=== PATIENT | male | born 1980 | race Caucasian/White ===

== ENCOUNTER 2017-05-03 15:37 | Emergency (ER) | payer MEDICAID ==
[2017-05-03] MEDS ORDERED: ONDANSETRON 4 MG/2 ML VIAL IVP STA (15:58)
[2017-05-03] MEDS ORDERED: KETOROLAC 60 MG/2 ML VIAL IVP STA (15:58)
[2017-05-03] MEDS ORDERED: SODIUM CHLORIDE 0.9% 1,000 ML IV ONE ×2 (15:58→17:24)
[2017-05-03] MEDS ORDERED: MORPHINE 10 MG/ML VIAL IVP STA ×3 (15:59→21:17)
--- NOTE | 2017-05-03 16:02 | ED Physician Documentation ---
PD HPI ABD PAIN - Stated complaint Stated Complaint: VOMMITING - Chief complaint Chief Complaint: Back Pain - History obtained from History obtained from: Patient - History of Present Illness Timing - onset: Other Timing - details: Other (He hit his back on the bathtub last night, but was not really hurt at the time. He was drinking heavily last night. This morning woke up and he was vomiting, 30 was just hung over but then in the midst of vomiting he developed severe left-sided nonradiating flank pain that is the most severe pain is ever had. There is no associated problem with bowel movements. No fevers. There is no blood in the vomit.) Review of Systems Ten Systems: 10 systems reviewed and negative Constitutional: denies: Fever, Chills Nose: denies: Rhinorrhea / runny nose, Congestion Cardiac: denies: Chest pain / pressure, Palpitations Respiratory: denies: Dyspnea, Cough PD PAST MEDICAL HISTORY - Present Medications Home Medications: Ambulatory Orders Medication Instructions Recorded Confirmed No Known Home Medications [No 05/03/17 05/03/17 Known Home Medications] - Allergies Allergies/Adverse Reactions: Allergies Allergy/AdvReac Type Severity Reaction Status Date / Time No Known Drug Allergies Allergy Verified 05/03/17 15:41 PD ED PE NORMAL - Vitals Vital signs reviewed: Yes - General General: Alert and oriented X 3, No acute distress - HEENT HEENT: PERRL, EOMI - Neck Neck: Supple, no meningeal sign, No bony TTP - Cardiac Cardiac: RRR, No murmur - Respiratory Respiratory: No respiratory distress, Clear bilaterally - Abdomen Abdomen: Normal bowel sounds, Soft, Non tender - Back Back: No CVA TTP, No spinal TTP - Extremities Extremities: No deformity, No tenderness to palpate, No edema, No calf tenderness / cord - Neuro Neuro: Alert and oriented X 3, Normal speech - Psych Psych: Normal mood, Normal affect Results - Vitals Vitals: Vital Signs - 24 hr 05/03/17 05/03/17 05/03/17 15:42 17:36 19:52 Temperature 36.4 C L 37.2 C Heart Rate 126 H 112 H 109 H Respiratory 18 16 15 Rate Blood Pressure 126/86 H 128/88 H 150/87 H O2 Saturation 97 97 99 05/03/17 05/03/17 05/03/17 20:26 21:19 21:38 Temperature 36.4 C L Heart Rate 114 H 79 80 Respiratory 15 18 16 Rate Blood Pressure 127/87 H 127/80 120/67 O2 Saturation 98 100 100 Oxygen O2 Source Room air - Labs Labs: Laboratory Tests 05/03/17 05/03/17 05/03/17 16:20 16:20 17:30 WBC 27.7 H RBC 5.90 Hgb 17.6 Hct 52.5 H MCV 89.0 MCH 29.7 MCHC 33.4 RDW 13.5 Plt Count 265 MPV 7.7 Neut # Not Reportable Lymph # Not Reportable [place] # Not Reportable Eos # Not Reportable Baso # Not Reportable Absolute Nucleated RBC Not Reportable Total Counted 100 Band Neuts % (Manual) 5 Nucleated RBC % Not Reportable Neutrophils # (Manual) 23.5 H Lymphocytes # (Manual) 2.5 Monocytes # (Manual) 1.7 H WBC Morphology 2+ TOXIC GRANULATION Platelet Estimate NORMAL (130-450,000) Platelet Morphology NORMAL APPEARANCE RBC Morph Micro Appear NORMAL APPEARANCE Sodium 138 Potassium 4.6 Chloride 94 L Carbon Dioxide 18 L Anion Gap 26.0 H BUN 24 H Creatinine 1.7 H Estimated GFR (MDRD) 45 L Glucose 140 H Calcium 9.4 Total Bilirubin 0.9 AST 39 ALT 36 Alkaline Phosphatase 73 Total Protein 8.9 H Albumin 5.1 Globulin 3.8 Albumin/Globulin Ratio 1.3 Lipase 13 L Urine Color YELLOW Urine Clarity CLEAR Urine pH 5.5 Ur Specific [place] >=1.030 H Urine Protein TRACE Urine Glucose (UA) NEGATIVE Urine Ketones 15 H Urine Occult Blood TRACE-INTA Urine Nitrite NEGATIVE Urine Bilirubin NEGATIVE Urine Urobilinogen 0.2 (NORMAL) Ur Leukocyte Esterase NEGATIVE Urine RBC 0-5 Urine WBC 0-3 Ur Squamous Epith Cells FEW Squamous Urine Bacteria Few Urine Casts 3-5 Fine Granular Ur Microscopic Review INDICATED Urine Culture Comments NOT INDICATED PD MEDICAL DECISION MAKING - ED course ED course: 37-year-old gentleman with sudden onset left flank pain while vomiting. This was probably from a hangover initially. He was drinking heavily last night. However the pain is very atypical and severe. Initial consideration was for kidney stone given the location, it is an atypical location for Boerhaave syndrome but that is what is seen on the CT. He was administered Zosyn and Protonix IV. Kept n.p.o. The diagnosis and it serious weakness were discussed with him. He was very hesitant to have this treated in standard fashion which would be transferred to a tertiary facility with cardiothoracic surgery coverage given his lack of insurance and he is very concerned about the cost associated with this. However he does have a significant white blood cell count , evidence of acute renal failure. I discussed the case with our hospitalist here who agreed that he should probably go to a tertiary center and [facility] was called at 5:02 PM. [facility] did not have a thoracic surgeon inspector canned food reconditioning, [facility] was called for potential transfer at about 5:30 PM. They called back and did not have any ICU beds, [facility] was called approximately 5:[address] Vaughan to [facility], not the [facility] because she felt she could get an esophagram more rapidly at [facility] than [facility]. She requested a second liter of IV fluids, p.o. contrast only chest CT and Diflucan and vancomycin in addition to the Zosyn prior to transport. Of note the patient despite multiple conversation refused ambulance or airlift transport to [facility]. He understands he is a risk of ; Signed an AMA form to this extent. She called back again and wanted to see the chest CT, she reviewed the chest CT and looked at it with her radiologist and call me back around [phone] and does want him still at [facility]. Departure - Departure Disposition: 02 Transfer Acute Care Hosp Clinical Impression: Boerhaave's syndrome Condition: Serious Discharge Date/Time: 05/03/17 21:37
[2017-05-03] MEDS ORDERED: MORPHINE 10 MG/ML VIAL ONE ×3 (16:11→21:28)
[2017-05-03] MEDS ORDERED: ONDANSETRON 4 MG/2 ML VIAL ONE (16:11)
[2017-05-03] MEDS ORDERED: KETOROLAC 30 MG/ML VIAL ONE (16:12)
[2017-05-03 16:28] LABS: BASOPHILS % (AUTO) 0.2 %; HCT - HEMATOCRIT 52.5 % (42.0-52.0); HGB - HEMOGLOBIN 17.6 g/dL (14.0-18.0); LYMPHOCYTES % (AUTO) 5.5 %; MEAN CORPUSCULAR HEMOGLOBIN 29.7 pg (27.0-31.0); MEAN CORPUSCULAR HGB CONC 33.4 g/dL (32.0-36.0); MEAN PLATELET VOLUME 7.7 fL (7.4-11.4); MONOCYTES % (AUTO) 5.2 %; NEUTROPHILS % (AUTO) 89.1 %; RED CELL DISTRIBUTION WIDTH 13.5 % (12.0-15.0); UNCORRECTED WHITE BLOOD COUNT 27.7 x10^3/uL; WHITE BLOOD COUNT 27.7 x10^3/uL (4.8-10.8)
--- NOTE | 2017-05-03 16:36 | CT Preliminary Report ---
Exam: CT ABDOMEN/PELVIS W/O IMPRESSION: 1. Small amount of pneumomediastinum in the lower chest around esophagus. 2. No urolithiasis or hydronephrosis. 3. Steatosis of the liver. [facility] SITE ID: [id number]
--- NOTE | 2017-05-03 16:39 | CT Report ---
EXAM: CT ABDOMEN AND PELVIS (CT KUB) EXAM DATE: 05/03/2017 04:19 PM. CLINICAL HISTORY: Left flank pain. COMPARISONS: None. TECHNIQUE: Routine axial helical CT imaging was performed through the abdomen and pelvis without IV c ontrast. Reconstructions: Coronal and sagittal. In accordance with CT protocol optimization, one or more of the following dose reduction techniques w ere utilized for this exam: automated exposure control, adjustment of mA and/or KV based on patient s ize, or use of iterative reconstructive technique. FINDINGS: Lung Bases: Unremarkable. Right Kidney/Ureter: No stones, hydronephrosis, or hydroureter. No perinephric fat stranding. Left Kidney/Ureter: No stones, hydronephrosis, or hydroureter. No perinephric fat stranding. Other Solid Organs: The liver parenchyma is low in density. The spleen, pancreas and adrenal glands a ppear unremarkable. Gallbladder/Bile Ducts: Unremarkable. Peritoneal Cavity: The stomach is fluid-filled. The remainder of the bowel appears normal by CT. Appe ndix appears normal. Pelvic Organs: No bladder stones or wall thickening. Noncontrast images of the visualized pelvic orga ns are unremarkable. Vasculature: Unremarkable. Other: There is a small amount of pneumomediastinum around the lower thoracic esophagus. IMPRESSION: 1. Small amount of pneumomediastinum in the lower chest around esophagus. 2. No urolithiasis or hydronephrosis. 3. Steatosis of the liver. [facility] Referring Provider Line: [phone] SITE ID: [id number]
[2017-05-03 16:42] LABS: ALBUMIN/GLOBULIN RATIO 1.3 (1.0-2.2); BILIRUBIN,TOTAL 0.9 mg/dL (0.2-1.0); CALCIUM 9.4 mg/dL (8.5-10.3); CREATININE 1.7 mg/dL (0.6-1.2); POTASSIUM 4.6 mmol/L (3.5-5.0); TOTAL PROTEIN 8.9 g/dL (6.7-8.2)
[2017-05-03 16:48] LABS: BAND NEUTROPHILS % (MANUAL) 5 %; LYMPHOCYTES % (MANUAL) 9 %; NEUTROPHILS % (MANUAL) 80 %; TOTAL CELLS COUNTED 100
[2017-05-03 16:49] LABS: PLATELET ESTIMATE, MANUAL NORMAL (130-450,000) (NORMAL); PLATELET MORPHOLOGY NORMAL APPEARANCE (NORMAL); WBC MORPHOLOGY (MULTIPLE) 2+ TOXIC GRANULATION (NORMAL)
[2017-05-03 16:50] LABS: NP AUTO DIFFERENTIAL? YES; NP MAN DIFFERENTIAL? NO
[2017-05-03] MEDS ORDERED: PANTOPRAZOLE 40 MG VIAL IVP STA (16:58)
[2017-05-03] MEDS ORDERED: PIPERACILLIN/TAZOBACTAM 3.375 GM in SODIUM CHLORIDE 0.9% MINIBAG 100 ML IV STA (16:58)
[2017-05-03] MEDS ORDERED: PANTOPRAZOLE 40 MG VIAL ONE (17:18)
[2017-05-03 18:09] LABS: BILIRUBIN,URINE NEGATIVE (NEGATIVE); PH,URINE 5.5 PH (5.0-7.5)
[2017-05-03 18:42] LABS: UA w/ MICROSCOPIC CHARGE YES
[2017-05-03 18:43] LABS: UR CULTURE IF IND NOT INDICATED; WBC,URINE 0-3 /HPF (0-3)
[2017-05-03] MEDS ORDERED: LACTATED RINGERS 1,000 ML IV STA (18:50)
[2017-05-03] MEDS ORDERED: FLUCONAZOLE 200 MG/100 ML 100 ML IV ONE (18:50)
[2017-05-03] MEDS ORDERED: VANCOMYCIN INJ 1.5 GM in SODIUM CHLORIDE 0.9% 500 ML IV STA (18:50)
[2017-05-03] MEDS ORDERED: VANCOMYCIN 1.5 GM/NS 500 ML 1.5 GM/500 ML BAG IV STA (18:53)
[2017-05-03] MEDS ORDERED: DIATR MEGLU/DIATRIZOATE SODIUM 120 ML BOTTLE PO ONE (19:58)
--- NOTE | 2017-05-03 21:06 | CT Preliminary Report ---
Exam: CT CHEST W/O IMPRESSION: Pneumomediastinum is likely due to an esophageal defect due to a small amount of contrast extravasation into the right side of the mid mediastinum. A candidate location for defect was identi fied just inferior to the area of contrast although evaluation is limited by motion in the inferior p ortion of esophagus. [facility] SITE ID: [id number]
--- NOTE | 2017-05-03 21:09 | CT Report ---
EXAM: CT CHEST EXAM DATE: 05/03/2017 07:36 PM. CLINICAL HISTORY: Nausea, vomiting, left-sided pain. Clinical concern for Boerhaave syndrome. COMPARISONS: None. TECHNIQUE: Routine helical CT imaging was performed through the chest. IV contrast: None. Reconstruct ions: Coronal and sagittal. Enteric contrast was swallowed at the time the exam. In accordance with CT protocol optimization, one or more of the following dose reduction techniques w ere utilized for this exam: automated exposure control, adjustment of mA and/or KV based on patient s ize, or use of iterative reconstructive technique. FINDINGS: Lungs/Pleura: No nodules, bronchial thickening, consolidation, or edema. Pulmonary vasculature is nor mal. No pericardial or pleural effusion. No pneumothorax. Mediastinum: Pneumomediastinum is present. The air extends into the neck. On the thin section images, it is evident that there is some contrast in the right of the esophagus in the mid esophagus near th e right hilar region. This can be seen on series 16, image 129 and series 10, images 165 through 176. A potential minute defect in the right side of the esophagus is visible on series 10, image 179 thro ugh 186. However, confirming that is the site of the extravasation is difficult given the high degree of motion in the lower portion of the esophagus on this examination. Bones: Unremarkable. Visualized Abdomen: Unremarkable. Other: None. IMPRESSION: Pneumomediastinum is likely due to an esophageal defect due to a small amount of contrast extravasation into the right side of the mid mediastinum. A candidate location for defect was identi fied just inferior to the area of contrast although evaluation is limited by motion in the inferior p ortion of esophagus. [facility] Referring Provider Line: [phone] SITE ID: [id number]
[2017-05-03 21:40] VITALS: BP 120/67
== END 2017-05-03 21:37 | disposition short-term general hospital (02) ==
LOC: ED 15:37
DX: K22.3 Perforation of esophagus (principal)
CPT/HCPCS: 36415; 71250; 74176; 80053; 81001; 83690; 85025; 96361; 96365; 96366; 96367; 96368; 96375; 96376; 99285; J7120; Q9963; 81003; 87086; 99284

== ENCOUNTER → 2022-06-23 | Outpatient (CLI) | payer SELFPAY | END | disposition EMS.NT | LOC: EMS 08:29 | DX: R09.89 Other specified symptoms and signs involving the circulatory and respiratory systems (principal) ==